=== PATIENT | female | born 1990 | race Caucasian/White ===

== ENCOUNTER 2017-01-19 13:48 | Emergency (ER) | payer BC, OTHER ==
[~2017-01-19] VITALS: Ht 165.1 cm; Wt 114.3 kg
[2017-01-19 15:08] LABS: Urine Bilirubin Negative (Negative); Urine Blood 2+ /uL (Negative); Urine Color Yellow (Yellow); Urine Glucose Normal (Normal); Urine Ketone Negative (Negative); Urine Nitrite Negative (Negative); Urine RBC 1 /hpf (0 - 4); Urine Squamous Epithelial Cell FEW /hpf (<5); Urine Urobilinogen Normal (Negative)
[2017-01-19 15:17] LABS: Basophils # (auto) 0 uL; Basophils % (auto) 0.5 % (0.0-2.0); CONDITION Y; DEFINITIVE SEE PRINTOUT; Eosinophils # (auto) 0.1 uL; Eosinophils % (auto) 1.3 % (0.0-7.0); Hematocrit 34.4 % (36.0-46.0); Hemoglobin 10.7 g/dL (12.2-16.2); Lymphocytes % (auto) 26.7 % (10.0-50.0); Mean Corpuscular Hemoglobin 21.4 pg (28.0-32.0); Mean Corpuscular Hgb Conc. 31.1 g/dL (32.0-36.0); Mean Corpuscular Volume 68.6 fL (80.0-100.0); Monocytes # (auto) 0.5 uL; Neutrophils # (auto) 4.9 uL; Neutrophils % (auto) 64.5 % (37.0-80.0); Platelet Count (auto) 334 10^3/uL (140-450); White Blood Cell 7.6 10^3/uL (4.4-10.8)
[2017-01-19 15:21] LABS: Red Cell Distribution Width 20.1 % (11.6-16.0)
[2017-01-19 15:49] LABS: Albumin 3.7 g/dL (3.4-5.0); BUN/Creatinine Ratio 8.2; Calcium 8.8 mg/dL (8.5-10.1); Potassium 3.9 mmol/L (3.5-5.1)
[2017-01-19 15:52] LABS: Bilirubin, Total 0.2 mg/dL (0.2-1.0); Total Protein 8.4 g/dL (6.4-8.2)
[2017-01-19 15:57] LABS: Ovalocytes FEW; Tear Drop Cells FEW
[2017-01-19 15:58] LABS: Anisocytosis Moderate; Hypochromia Moderate; Polychromasia Slight
[2017-01-19 15:59] LABS: Platelet Estimate Adequate; Stomatocytes Few
[2017-01-19] MEDS ORDERED: SODIUM CHLORIDE 0.9% 1,000 ML IV ONE (19:30)
[2017-01-19 19:55] LABS: Allen Test Yes; Base Excess -1.5 mmol/L (-2.0-2.0); Blood 02Sat 96.1 % (96-100); Blood COHb 0.1 % (0.5-1.5); Blood MetHb 0.1 % (0.0-1.5); HCO3 22.4 mmol/L (22-26.0); HHb 3.9 % (0.0-5.0); MODE ROOM AIR; O2Hb 95.9 % (94.0-97.0); PCO2 34.8 mmHg (35.0-45.0); PCO2(T) 34.8 mmHg (35.0-45.0); PO2 82.7 mmHg (80.0-100.0); PO2(T) 82.7 mmHg (80.0-100.0); Sample Type Arterial; pH 7.426 (7.350-7.450)
[2017-01-19] MEDS ORDERED: LORazepam 0.5 MG TAB PO ONE (20:15)
[2017-01-19 21:20] VITALS: BP 134/81
== END 2017-01-19 21:20 | disposition home or self-care (01) ==
LOC: ER 13:48
DX: D64.9 Anemia, unspecified (principal); F41.9 Anxiety disorder, unspecified
CPT/HCPCS: 36415; 36600; 71020; 80053; 81001; 81025; 82805; 85025; 93005; 96360; 99285; J7030

== ENCOUNTER 2022-11-23 11:15 | Emergency (ER) | payer BC, OTHER ==
[~2022-11-23] VITALS: Ht 170.2 cm; Wt 93.7 kg
[2022-11-23 11:51] VITALS: BP 136/50
[2022-11-23] MEDS ORDERED: KETOROLAC TROMETH 60MG/2ML VIAL IM ONE (12:00)
[2022-11-23 12:14] LABS: Urine Bacteria NONE SEEN /hpf (None Seen); Urine Blood 3+ /uL (Negative); Urine Specific Gravity 1.007 (1.001-1.035); Urine WBC 2 /hpf (0 - 5)
[2022-11-23] MEDS ORDERED: METH-1182 PO (12:51)
[2022-11-23] MEDS ORDERED: IBUP-1454 PO ×2 (12:51)
[2022-11-23] MEDS ORDERED: IBUP-1456 PO (12:52)
== END 2022-11-23 12:52 | disposition home or self-care (01) ==
LOC: ER 11:15
DX: M54.41 Lumbago with sciatica, right side (principal); Z86.2 Personal history of diseases of the blood and blood-forming organs and certain disorders involving the immune mechanism
CPT/HCPCS: 72100; 81001; 96372; 99284; J1885